=== PATIENT | male | born 1960 | race Two or more races ===

== ENCOUNTER 2021-11-15 14:00 | Outpatient (RCR) | payer OTHER, SELFPAY ==
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
== END 2021-11-15 14:45 | disposition home or self-care (01) ==
LOC: HO.PT 14:00
PROVIDERS: PCP Internal Medicine; Visit Provider Physician Assistant
DX: S46.812D Strain of other muscles, fascia and tendons at shoulder and upper arm level, left arm, subsequent encounter (principal); V89.2XXD Person injured in unspecified motor-vehicle accident, traffic, subsequent encounter
CPT/HCPCS: 97110; 97140; 97161; 97530

== ENCOUNTER 2022-03-06 06:19 | Outpatient (REF) | payer OTHER, SELFPAY ==
[2022-03-06 06:24] LABS: MANUAL DIFF FLAG NO
[2022-03-06 07:45] LABS: Cholesterol 158 mg/dL; HDL Cholesterol 42 mg/dL; LDL Cholesterol Calculated 80 mg/dl; Triglycerides 184 mg/dL
[2022-03-06 08:07] LABS: Thyroid Stimulating Hormone 4.21 uIU/mL (0.32-4.0)
[2022-03-06 08:43] LABS: Basophils Percent Auto 0.5 % (0-2); Eosinophils Absolute Auto 0.1 X10*3/uL (0.0-0.4); Eosinophils Percent Auto 1.6 % (0-4); Hematocrit 38.8 % (42.0-52.0); Hemoglobin 13.6 g/dl (14.0-18.0); Imm Gran Abs Auto 0.02 X10*3/uL (0.00-0.03); Imm Gran Pct Auto 0.5 % (0.0-0.4); Lymphocytes Absolute Auto 1.3 X10*3/uL (1.2-4.9); Mean Corpuscular HGB Conc 35.1 g/dl (31.0-36.0); Mean Corpuscular Hemoglobin 30.5 pg (27.0-33.0); Mean Platelet Volume 10.7 fL (9.4-12.4); Monocytes Absolute Auto 0.2 X10*3/uL (0.1-1.2); Monocytes Percent Auto 5.2 % (2-11); Neutrophils Absolute Auto 2.3 x10*3/uL (2.0-8.3); Neutrophils Percent Auto 59.2 % (45-73); Platelet Count 120 X10*3/uL (160-400); Red Blood Count 4.46 X10*6/uL (4.60-5.80); Red Cell Distribution Width 16.9 % (11.0-16.0); White Blood Count 3.9 X10*3/uL (4.8-10.8)
[2022-03-06 09:27] LABS: Microalbumin Urine < 5.0 mg/L
[2022-03-07 18:02] LABS: Thyroglobulin Antibodies 6 IU/mL (< or = 1)
[2022-03-08 10:17] LABS: Thyroid Peroxidase Antibodies 54 IU/mL (<9)
[2022-03-10 12:51] LABS: Vitamin D 25-OH, D2 <4 ng/mL; Vitamin D 25-OH, D3 18 ng/mL; Vitamin D 25-OH, Total 18 ng/mL (30-100)
== END 2022-03-06 06:20 | disposition home or self-care (01) ==
LOC: HO.LAB 06:19
PROVIDERS: PCP Internal Medicine; Visit Provider Internal Medicine
DX: E66.01 Morbid (severe) obesity due to excess calories (principal); Z68.35 Body mass index [BMI] 35.0-35.9, adult; E11.9 Type 2 diabetes mellitus without complications; D64.9 Anemia, unspecified; E03.9 Hypothyroidism, unspecified; E78.5 Hyperlipidemia, unspecified; E55.9 Vitamin D deficiency, unspecified
CPT/HCPCS: 36415; 80061; 82043; 82306; 84443; 85025; 86376; 86800

== ENCOUNTER 2022-09-10 06:36 | Outpatient (REF) | payer OTHER, SELFPAY ==
[2022-09-10 08:23] LABS: Alanine Aminotransferase 14 U/L (0-40); Albumin Level 3.9 g/dL (3.5-5.0); Alkaline Phosphatase 65 U/L (39-117); Anion Gap 14 (12-20); Aspartate Amino Transferase 14 U/L (5-37); Bilirubin Total 1.7 mg/dL (0.0-1.0); Blood Urea Nitrogen 11 mg/dL (9-16); Calcium 9.1 mg/dL (8.4-10.2); Carbon Dioxide 27 mmol/L (22-29); Chloride 103 mmol/L (96-108); Cholesterol 128 mg/dL; Estimated Glomerular Filt Rate > 60; Glucose Fasting 165 mg/dL (60-99); HDL Cholesterol 45 mg/dL; LDL Cholesterol Calculated 67 mg/dl; Sodium 140 mmol/L (135-145); Total Protein 6.5 g/dL (6.5-8.0); Triglycerides 83 mg/dL
[2022-09-10 08:34] LABS: Creatinine Urine 171.87 mg/dL; Microalbum/Creatinine Ratio Ur 19.2 ug/mg cr
[2022-09-10 08:45] LABS: Vitamin D 25-OH Total 11.5 ng/mL (>30)
== END 2022-09-10 06:37 | disposition home or self-care (01) ==
LOC: HO.LAB 06:36
PROVIDERS: PCP Internal Medicine; Visit Provider Internal Medicine
DX: E11.65 Type 2 diabetes mellitus with hyperglycemia (principal); E03.9 Hypothyroidism, unspecified; E78.5 Hyperlipidemia, unspecified; E55.9 Vitamin D deficiency, unspecified; Z79.4 Long term (current) use of insulin
CPT/HCPCS: 36415; 80053; 80061; 82043; 82306; 84443

== ENCOUNTER 2022-11-22 11:01 | Outpatient (REF) | payer OTHER, SELFPAY ==
[2022-11-22 12:11] LABS: Hematocrit 34.6 % (42.0-52.0); Hemoglobin 12.2 g/dl (14.0-18.0); Mean Corpuscular HGB Conc 35.3 g/dl (31.0-36.0); Mean Corpuscular Hemoglobin 30.2 pg (27.0-33.0); Mean Corpuscular Volume 85.6 fL (80.0-98.0); Mean Platelet Volume 10.9 fL (9.4-12.4); Platelet Count 107 X10*3/uL (160-400); Red Blood Count 4.04 X10*6/uL (4.60-5.80); Red Cell Distribution Width 17.2 % (11.0-16.0); White Blood Count 3.2 X10*3/uL (4.8-10.8)
[2022-11-22 12:40] LABS: Anion Gap 9 (12-20); Blood Urea Nitrogen 7 mg/dL (9-16); Carbon Dioxide 28 mmol/L (22-29); Chloride 104 mmol/L (96-108); Estimated Glomerular Filt Rate > 60; Potassium 3.9 mmol/L (3.3-5.1); Sodium 137 mmol/L (135-145)
[2022-11-22 13:16] LABS: Glucose Random 431 mg/dL (60-115)
== END 2022-11-22 11:02 | disposition home or self-care (01) ==
LOC: HO.LAB 11:01
PROVIDERS: PCP Internal Medicine; Visit Provider Physician Assistant
DX: R19.5 Other fecal abnormalities (principal)
CPT/HCPCS: 36415; 80048; 85027

== ENCOUNTER 2022-11-26 07:30 | Outpatient (REF) | payer OTHER, SELFPAY | END 2022-11-26 07:31 | disposition home or self-care (01) | LOC: HO.LNP 07:30 | PROVIDERS: Visit Provider Physician Assistant | DX: R19.5 Other fecal abnormalities (principal) | CPT/HCPCS: 87338 ==

== ENCOUNTER → 2022-12-06 11:46 | Outpatient (BNVA) | payer OTHER, SELFPAY | PROVIDERS: PCP Internal Medicine; Visit Provider Physician Assistant ==

== ENCOUNTER 2023-11-20 16:06 | Outpatient (AMB) | payer OTHER, SELFPAY ==
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
[2023-11-20 16:09] VITALS: BP 130/80; BMI 29.3
== END 2023-11-20 16:41 | disposition home or self-care (01) ==
PROVIDERS: PCP Internal Medicine; Visit Provider Internal Medicine
DX: E11.65 Type 2 diabetes mellitus with hyperglycemia (principal); Z79.4 Long term (current) use of insulin
CPT/HCPCS: 83036; 99214

== ENCOUNTER 2023-12-04 07:16 | Outpatient (REF) | payer OTHER, SELFPAY ==
[2023-12-04 07:28] LABS: MANUAL DIFF FLAG NO
[2023-12-04 08:04] LABS: Basophils Percent Auto 0.6 % (0-2); Eosinophils Absolute Auto 0.1 X10*3/uL (0.0-0.4); Eosinophils Percent Auto 1.5 % (0-4); Hematocrit 32.9 % (42.0-52.0); Hemoglobin 11.5 g/dl (14.0-18.0); Imm Gran Abs Auto 0.03 X10*3/uL (0.00-0.03); Imm Gran Pct Auto 0.9 % (0.0-0.4); Lymphocytes Absolute Auto 0.9 X10*3/uL (1.2-4.9); Lymphocytes Percent Auto 27.4 % (20-40); Mean Corpuscular Hemoglobin 30.9 pg (27.0-33.0); Mean Corpuscular Volume 88.4 fL (80.0-98.0); Monocytes Absolute Auto 0.3 X10*3/uL (0.1-1.2); Monocytes Percent Auto 7.4 % (2-11); Neutrophils Absolute Auto 2.1 x10*3/uL (2.0-8.3); Neutrophils Percent Auto 62.2 % (45-73); Platelet Count 114 X10*3/uL (160-400); Red Blood Count 3.72 X10*6/uL (4.60-5.80); Red Cell Distribution Width 15.9 % (11.0-16.0); White Blood Count 3.4 X10*3/uL (4.8-10.8)
[2023-12-04 08:45] LABS: Alanine Aminotransferase 14 U/L (0-40); Albumin Level 3.8 g/dL (3.5-5.0); Alkaline Phosphatase 62 U/L (39-117); Anion Gap 12 (12-20); Aspartate Amino Transferase 16 U/L (5-37); Bilirubin Total 1.2 mg/dL (0.0-1.0); Blood Urea Nitrogen 10 mg/dL (9-16); Calcium 9.4 mg/dL (8.4-10.2); Carbon Dioxide 27 mmol/L (22-29); Chloride 102 mmol/L (96-108); Cholesterol 124 mg/dL (<200); Estimated Glomerular Filt Rate > 60; Glucose Fasting 313 mg/dL (60-99); HDL Cholesterol 50 mg/dL (>40); LDL Cholesterol Calculated 61 mg/dL (<100); Potassium 4.1 mmol/L (3.3-5.1); Sodium 137 mmol/L (135-145); Total Protein 6.6 g/dL (6.5-8.0); Triglycerides 69 mg/dL (<150)
[2023-12-04 08:51] LABS: Creatinine Urine 82.41 mg/dL; Microalbum/Creatinine Ratio Ur 135.9 ug/mg cr (<30)
[2023-12-04 08:51] LABS: Vitamin D 25-OH Total 12.6 ng/mL (>30)
[2023-12-07 11:38] LABS: NT-proBNP 215 pg/mL (<125)
== END 2023-12-04 07:17 | disposition home or self-care (01) ==
LOC: HO.LAB 07:16
PROVIDERS: PCP Internal Medicine; Visit Provider Internal Medicine
DX: E11.65 Type 2 diabetes mellitus with hyperglycemia (principal); E78.5 Hyperlipidemia, unspecified; E03.9 Hypothyroidism, unspecified; R60.0 Localized edema; E55.9 Vitamin D deficiency, unspecified; Z79.4 Long term (current) use of insulin
CPT/HCPCS: 36415; 80053; 80061; 82043; 82306; 82570; 83880; 84443; 85025

== ENCOUNTER → 2023-12-11 12:35 | Outpatient (REF) | payer OTHER, SELFPAY ==
--- NOTE | 2023-12-11 12:38 | CA_ITS ---
Transthoracic Echocardiogram Patient (Last, First, Middle): Jeet Flores R Gender: Male Date of : 1960 Age: 63 Procedure Date: 12/11/2023 Procedure Type: Transthoracic Echocardiogram Location: OP Height: 165.1 cm Weight: 78.02 kg BSA: 1.86 m2 Heart Rate: bpm BP: 132 / 80 mmHg Apartment Property Manager: Referring MD: Lesvia Driver MD Account Liaison Hospice: Jeevan Palm MD Symptoms: R01.1 - Cardiac murmur, unspecified Study Quality: Good ECG Rhythm: Sinus Conclusions: - 1. Moderately reduced LV ejection fraction of 35-40% with mild LVH with impaired relaxation filling pattern 2. Trace aortic regurgitation 3. Normal RV systolic pressure 4. Mildly dilated ascending aorta 3.7 cm 5. No pericardial effusion Findings Left Ventricle Normal left ventricular cavity size. There is mildly increased left ventricular wall thickness. The left ventricular systolic function is moderately decreased. The visually estimated ejection fraction is between 35 40%. There is moderate global hypokinesis. Spectral Doppler is indicative of an impaired relaxation filling pattern. E/E prime ratio is between 8 and 15 consistent with indeterminate filling pressures. Right Ventricle Normal right ventricular cavity size and systolic function. Atria The left atrium is likely dilated. There is lipomatous hypertrophy of the interatrial septum. There is no evidence of interatrial shunt. The right atrium is normal in size. Aortic Valve There is mild calcification of the aortic valve. There is no aortic valve stenosis. There is trace (trivial) aortic valve regurgitation. Mitral Valve Normal mitral valve structure and function. There is trace mitral valve regurgitation. There is no mitral valve stenosis. Pulmonic Valve The pulmonic valve was not well visualized. Tricuspid Valve Likely normal tricuspid valve structure and function. There is trace tricuspid valve regurgitation. The right ventricular systolic pressure is normal. The right ventricular systolic pressure is 22 mmHg. Normal right atrial pressure. There is no evidence of pulmonary hypertension. Great Vessels The pulmonary artery was not well visualized. There is mild dilatation of the ascending aorta measuring 3.70 cm. Venous The inferior vena cava is normal in size and collapses greater than 50% with inspiration. Pericardium/Pleural There is no evidence of pericardial effusion. Prior Study Comparison Significant changes compared to prior study. Compared to prior echo from 2009, LV EF is reduced Measurements 2D Linear Measurements IVSd: 1.33 0.6-0.9/0.6-1.0 cm LVIDd: 4.50 3.9-5.3/4.2-5.9 cm LVIDd Index: 2.42 2.4-3.2/2.2-3.1 cm/m2 LVIDs: 3.32 2.0-3.6 cm LVPWd: 1.31 0.7-1.1 cm Ao Root: 3.60 2.1-3.5 cm LA Diam: 3.10 2.7-3.8/3.0-4.0 cm LAIDs Index: 1.67 1.5-2.3 cm/m2 LV Mass: 283.78 67-162/88-224 g LV Mass Index: 152.57 43-95/49-115 g/m2 LVOT Diam: 2.40 3.0+(-)1.3 cm 2D Systolic Function EF 4C: 34.70 >55% EF 2C: 41.50 >55% EF BiP: 35.90 >55% Mitral Valve MV Pk E: 0.45 MV PK A: 0.83 MV Decel Time: 98.00 E/A: 0.50 E'Lateral: 4.68 E'Medial: 2.72 E/E' Med: 16.50 E/E' Lat: 9.60 PHT: 29.00 MVA PHT: 7.59 Decel [place]: 4.57 Aortic Valve AoV Pk Toro: 1.68 AoV Mn Toro: 1.23 AoV VTI: 0.33 AoV Pk Grad: 11.00 Aov Mn Grad: 7.00 NICK Cont.VTI: 2.69 LVOT LVOT Pk Toro: 0.80 LVOT Mn Toro: 0.49 LVOT VTI: 0.20 LVOT Pk Grad: 3.00 LVOT Mn Grad: 1.00 LVOT Diam: 2.40 LVOT Area: 4.52 Diastolic Function MV Pk E: 0.45 MV Pk A: 0.83 E/A: 0.50 E'Medial: 2.72 E/E' Med: 16.50 E' Laterial: 4.68 E/E' Lat: 9.60 Right Ventricle TAPSE (mm): 24.00 TVS' Toro: 14.00 Tricuspid Valve TR Pk Toro: 2.19 TR Pk Grad: 19.00 RA Press: 3.00 RVSP: 22.00 Great Vessels Aorta Ao Root-2D: 3.60 2.0-3.7 cm Ao Asc: 3.70 2.1-3.4 cm Pulmonary Valve PV Pk Toro: 0.86 Peak PV Grad: 3.00 Updated in Other Vendor System with Status of Final Jeevan Palm MD electronically signed on 12/11/2023 1:46:30 PM with status of Final
== END ==
LOC: HO.CARD 12:35
PROVIDERS: PCP Internal Medicine; Visit Provider Internal Medicine
DX: R01.1 Cardiac murmur, unspecified (principal)
CPT/HCPCS: 93306

== ENCOUNTER → 2023-12-11 12:38 | Outpatient (BNV) | payer OTHER, SELFPAY | PROVIDERS: PCP Internal Medicine; Visit Provider Internal Medicine Cardiovascular Disease | DX: I35.8 Other nonrheumatic aortic valve disorders (principal); R93.1 Abnormal findings on diagnostic imaging of heart and coronary circulation | CPT/HCPCS: 93306 ==

== ENCOUNTER 2023-12-19 08:42 | Outpatient (AMB) | payer OTHER, SELFPAY ==
[2023-12-19 08:44] VITALS: BP 132/80; PULSE 97; O2SAT 99; BMI 30.9
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
== END 2023-12-19 09:17 | disposition home or self-care (01) ==
LOC: HO.HMGH 08:42
PROVIDERS: PCP Internal Medicine; Visit Provider Internal Medicine
DX: Z00.00 Encounter for general adult medical examination without abnormal findings (principal); E11.65 Type 2 diabetes mellitus with hyperglycemia; Z79.4 Long term (current) use of insulin; D61.818 Other pancytopenia; I50.22 Chronic systolic (congestive) heart failure
CPT/HCPCS: 99396

== ENCOUNTER → 2023-12-20 13:07 | Outpatient (BNV) | payer OTHER, SELFPAY | PROVIDERS: PCP Internal Medicine; Referring Provider Internal Medicine; Visit Provider Internal Medicine | DX: D61.818 Other pancytopenia (principal) | CPT/HCPCS: 99204 ==

== ENCOUNTER 2024-01-07 14:43 | Outpatient (AMB) | payer OTHER, SELFPAY ==
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
[2024-01-07 15:40] VITALS: BP 134/80; PULSE 93; O2SAT 99; BMI 32.3
== END 2024-01-07 15:58 | disposition home or self-care (01) ==
PROVIDERS: PCP Internal Medicine; Referring Provider Internal Medicine; Visit Provider Internal Medicine Nephrology
DX: R80.9 Proteinuria, unspecified (principal)
CPT/HCPCS: 99204

== ENCOUNTER → 2024-01-07 14:43 | Outpatient (BNVA) | payer OTHER, SELFPAY | PROVIDERS: PCP Internal Medicine; Referring Provider Internal Medicine; Visit Provider Internal Medicine Nephrology ==

== ENCOUNTER 2024-01-24 08:42 | Outpatient (REF) | payer OTHER, SELFPAY ==
--- NOTE | ~2024-01-24 | US_ITS ---
EXAMINATION: US RETROPERITONEAL LIMITED (RENAL ONLY) CLINICAL INFORMATION: Proteinuria. COMPARISON: None available. TECHNIQUE: Real-time imaging of the kidneys. FINDINGS: RIGHT KIDNEY: 12.8 x 6.0 x 5.7 cm (SAG x AP x TRV). The kidney is normal in size, contour, and echogenicity. Renal cortical thickness is normal. No calculi or focal parenchymal lesions. No hydronephrosis. LEFT KIDNEY: 13.3 x 4.8 x 4.5 cm (SAG x AP x TRV). The kidney is normal in size, contour, and echogenicity. Renal cortical thickness is normal. No calculi or focal parenchymal lesions. There is mild pelviectasis, without xander hydronephrosis. At the upper pole, a 5 mm benign, simple cyst is seen. At the interpolar aspect, a 7 mm benign, simple cyst is seen. These require no imaging follow-up. OTHER: There is mild splenomegaly, with a longitudinal span of 16.2 cm. US/US renal BI IMPRESSION: 1. Unremarkable ultrasound appearance of the kidneys. 2. There is mild splenomegaly.
== END 2024-01-24 08:43 | disposition home or self-care (01) ==
LOC: HO.US 08:42
PROVIDERS: PCP Internal Medicine; Visit Provider Internal Medicine Nephrology
DX: R80.9 Proteinuria, unspecified (principal)
CPT/HCPCS: 76775

== ENCOUNTER 2024-02-03 12:04 | Outpatient (AMB) | payer OTHER, SELFPAY ==
[2024-02-03 12:31] VITALS: BP 112/86; PULSE 99; O2SAT 99; BMI 30.1
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
== END 2024-02-03 12:59 | disposition home or self-care (01) ==
PROVIDERS: PCP Internal Medicine; Visit Provider Internal Medicine
DX: E11.65 Type 2 diabetes mellitus with hyperglycemia (principal); I50.22 Chronic systolic (congestive) heart failure; Z79.4 Long term (current) use of insulin; D61.818 Other pancytopenia; Z09 Encounter for follow-up examination after completed treatment for conditions other than malignant neoplasm; E03.9 Hypothyroidism, unspecified
CPT/HCPCS: 99495

== ENCOUNTER 2024-02-03 13:07 | Outpatient (REF) | payer OTHER, SELFPAY ==
[2024-02-03 15:29] LABS: Thyroid Stimulating Hormone 0.69 uIU/mL (0.32-4.0)
== END 2024-02-03 13:08 | disposition home or self-care (01) ==
LOC: HO.LAB 13:07
PROVIDERS: PCP Internal Medicine; Visit Provider Internal Medicine
DX: E03.9 Hypothyroidism, unspecified (principal)
CPT/HCPCS: 36415; 84443

== ENCOUNTER 2024-02-14 07:12 | Outpatient (REF) | payer OTHER, SELFPAY ==
[2024-02-14 07:51] LABS: Basophils Percent Auto 0.3 % (0-2); Eosinophils Absolute Auto 0.1 X10*3/uL (0.0-0.4); Eosinophils Percent Auto 2.1 % (0-4); Hematocrit 29.8 % (42.0-52.0); Hemoglobin 10.6 g/dl (14.0-18.0); Imm Gran Abs Auto 0.02 X10*3/uL (0.00-0.03); Imm Gran Pct Auto 0.6 % (0.0-0.4); Lymphocytes Absolute Auto 0.8 X10*3/uL (1.2-4.9); Lymphocytes Percent Auto 24.8 % (20-40); MANUAL DIFF FLAG NO; Mean Corpuscular HGB Conc 35.6 g/dl (31.0-36.0); Mean Corpuscular Hemoglobin 30.8 pg (27.0-33.0); Mean Corpuscular Volume 86.6 fL (80.0-98.0); Mean Platelet Volume 10.3 fL (9.4-12.4); Monocytes Absolute Auto 0.2 X10*3/uL (0.1-1.2); Neutrophils Absolute Auto 2.2 x10*3/uL (2.0-8.3); Neutrophils Percent Auto 66.2 % (45-73); Platelet Count 106 X10*3/uL (160-400); Red Blood Count 3.44 X10*6/uL (4.60-5.80); Red Cell Distribution Width 15.9 % (11.0-16.0); White Blood Count 3.4 X10*3/uL (4.8-10.8)
[2024-02-14 07:59] LABS: Appearance Urine Clear; Color Urine Yellow; Glucose Urine UA Negative (Negative); Leukocyte Esterase Urine Trace (Negative); Nitrite Urine Negative (Negative); PH 5.5 (5.0-9.0); UMIC TRIGGER UA YES; Urine Blood Negative (Negative); Urine Ketones Negative (Negative); Urine Protein Negative (Neg-Trace)
[2024-02-14 08:05] LABS: Bacteria Urine None Seen (None Seen); RBC Urine 0-2 /HPF (0-2); Squamous Epithelial Cell Urine 0-2 /HPF (0-2); WBC Urine 0-5 /HPF (0-5)
[2024-02-14 22:43] LABS: Anion Gap 13 (12-20); Blood Urea Nitrogen 17 mg/dL (9-16); Carbon Dioxide 30 mmol/L (22-29); Chloride 103 mmol/L (96-108); Estimated Glomerular Filt Rate > 60; Potassium 3.5 mmol/L (3.3-5.1); Sodium 142 mmol/L (135-145)
[2024-02-15 03:57] LABS: HBc Num1 0.13 S/CO (0.00-0.79); HBsAGNum1 0.46 S/CO (0.00-0.99); Hepatitis B Core Antibody Nonreactive (Nonreactive); Hepatitis B Surface Antigen Negative (Negative)
[2024-02-17 10:23] LABS: Complement C3 27 mg/dL (82-185)
[2024-02-17 21:13] LABS: Anti DNA DS Antibody <1 IU/mL; Anti Glomerular Basement Memb <1.0 AI; Myeloperoxidase Antibody <1.0 AI; Proteinase 3 PR3 Antibodies <1.0 AI
[2024-02-18 14:24] LABS: Neutrophil Cyto Ab Screen NEGATIVE (NEGATIVE)
[2024-02-19 13:07] LABS: IgA 329 mg/dL (70-320); IgG 1100 mg/dL (600-1540); IgM 37 mg/dL (50-300)
[2024-02-19 23:54] LABS: Phospholipase A2 IgG ELISA <4 RU/mL; Phospholipase A2 IgG IFA NEGATIVE (NEGATIVE)
== END 2024-02-14 07:13 | disposition home or self-care (01) ==
LOC: HO.LAB 07:12
PROVIDERS: PCP Internal Medicine; Visit Provider Internal Medicine Nephrology
DX: R80.9 Proteinuria, unspecified (principal)
CPT/HCPCS: 36415; 80051; 81001; 82310; 82565; 82784; 83520; 84520; 85025; 86021; 86036; 86160; 86225; 86255; 86334; 86704; 87340

== ENCOUNTER 2024-02-18 14:13 | Outpatient (AMB) | payer OTHER, SELFPAY ==
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
[2024-02-18 14:45] VITALS: BP 80/52; PULSE 102; O2SAT 99; BMI 30.4
== END 2024-02-18 15:18 | disposition home or self-care (01) ==
PROVIDERS: PCP Internal Medicine; Visit Provider Internal Medicine Nephrology
DX: R80.9 Proteinuria, unspecified (principal)
CPT/HCPCS: 99214

== ENCOUNTER → 2024-02-18 14:13 | Outpatient (BNVA) | payer OTHER, SELFPAY | PROVIDERS: PCP Internal Medicine; Visit Provider Internal Medicine Nephrology ==

== ENCOUNTER 2024-05-05 09:54 | Outpatient (REF) | payer OTHER, SELFPAY ==
[2024-05-05 10:53] LABS: Appearance Urine Clear; Color Urine Yellow; Glucose Urine UA Negative (Negative); Leukocyte Esterase Urine Moderate (2+) (Negative); Nitrite Urine Negative (Negative); PH 6.5 (5.0-9.0); Specific Gravity - Urine 1.015 (1.005-1.025); UMIC TRIGGER UA YES; Urine Blood Negative (Negative); Urine Ketones Negative (Negative); Urine Protein Negative (Neg-Trace)
[2024-05-05 11:09] LABS: Bacteria Urine None Seen (None Seen); Hyaline Casts Urine 0-2 /LPF (0-2); RBC Urine 0-2 /HPF (0-2); Squamous Epithelial Cell Urine 0-2 /HPF (0-2); WBC Urine 0-5 /HPF (0-5)
== END 2024-05-05 09:55 | disposition home or self-care (01) ==
LOC: HO.LAB 09:54
PROVIDERS: PCP Internal Medicine; Visit Provider Internal Medicine Nephrology
DX: R80.9 Proteinuria, unspecified (principal)
CPT/HCPCS: 81001

== ENCOUNTER 2024-07-30 15:24 | Outpatient (AMB) | payer OTHER, SELFPAY ==
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
[2024-07-30 15:47] VITALS: BP 120/70; BMI 33.6
== END 2024-07-30 15:57 | disposition home or self-care (01) ==
PROVIDERS: PCP Internal Medicine; Visit Provider Internal Medicine Nephrology
DX: R80.9 Proteinuria, unspecified (principal)
CPT/HCPCS: 99214

== ENCOUNTER → 2024-07-30 15:24 | Outpatient (BNVA) | payer OTHER, SELFPAY | PROVIDERS: PCP Internal Medicine; Visit Provider Internal Medicine Nephrology ==

== ENCOUNTER 2025-01-11 13:45 | Outpatient (AMB) | payer OTHER, SELFPAY ==
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
[2025-01-11 13:49] VITALS: BP 102/68; BMI 33.3
--- OUTSIDE RECORDS SUMMARY | 2025-01-11 15:24 | XMS_ITS | Clinical Summary ---
Author Organization [facility] Address [address] [place] [address] Care Team Providers Care Hospital Account Manager Name Role Phone Unavailable Primary Care Provider Unavailabl e Source Comments PLEASE NOTE, if this patient is a minor, it may be UNLAWFUL to discuss sensitive information that is contained in these records (such as FAMILY PLANNING, MENTAL HEALTH or SUBSTANCE ABUSE) with the minor patient's parent or other person without the patient's specific authorization.[facility] Immunizations Immunization Administration Dates Next Due PFIZER COVID VACCINE, PURPLE CAP, 12+ 04/19/2021 ,03/29/2021 Social History Tobacco Use Types Packs/Day Years Used Date Smoking Tobacco: Never Assessed Social Connections Answer Date Recorded Connectedness 0 04/09/2024 Financial Resource Strain Answer Date R ecorded Financial Resource Strain 0 2020 Stress Answer Date Recorded Stress 0 03/29/2021 Physical Activity Answer Date Recorded Physical Activity 0 03/29/2021 Food Insecurity Answer Date Recorded Food 0 04/23/2024 Transportation Needs Answer Date Record ed Transportation 0 03/29/2021 Housing Stability Answer Date Recorded Housing 0 03/29/2021 Safety and Environment Answer Date [place] rded Safety 0 03/29/2021 Utilities Answer Date Recorded Utilities 0 03/29/2021 Employment Answer Date Recorded Stress 0 04/09/2024 Sex and Gender Information Value Date Recorded Sex Assigned at Not on file Legal Sex Male 5:44 AM PDT Gender Identity Not on file Sexual Orientation Not on file Plan of Treatment Health Maintenance Due Date Last Done Comments Anxiety Screening 1960 Diabetes Screening 1962 Hepatitis C Screening 1962 Lipid Screening 1962 Tobacco Screening 1962 HIV Screening 1977 Hypertension Screening (#1) 1980 CT Colonography 10/06/2007 Colonoscopy 10/06/2007 Colorectal Cancer Screening 10/06/2007 FIT/gFOBT 10/06/2007 Fecal DNA 10/06/2007 Flexible Sigmoidoscopy 10/06/2007 Imm-Zoster, Recombinant (1 of 2) 2012 Imm-DTaP/Tdap/Td (3 - Td or Tdap) 07/08/2023 013, 08/23/2010 [id number] (4 - season) 2024 02/13/2022, 04/19/2021, 03/29/2021 Alcohol and Drug Screen 07/29/2024 Depression Annual Screen 07/29/2024 Imm-Influenza (Season Ended) 2025, 05/18/2011, 08/23/2010, Additional history exists Insurance [employer]
== END 2025-01-11 14:19 | disposition home or self-care (01) ==
LOC: HO.HMCH 13:46
PROVIDERS: PCP Internal Medicine; Visit Provider Internal Medicine
DX: I50.22 Chronic systolic (congestive) heart failure (principal); E11.65 Type 2 diabetes mellitus with hyperglycemia; Z79.4 Long term (current) use of insulin; E78.5 Hyperlipidemia, unspecified; E03.9 Hypothyroidism, unspecified; G43.909 Migraine, unspecified, not intractable, without status migrainosus

== ENCOUNTER → 2025-01-11 13:45 | Outpatient (BNVA) | payer OTHER, SELFPAY | PROVIDERS: PCP Internal Medicine; Visit Provider Internal Medicine | DX: I50.22 Chronic systolic (congestive) heart failure (principal); E11.65 Type 2 diabetes mellitus with hyperglycemia; E78.5 Hyperlipidemia, unspecified; E03.9 Hypothyroidism, unspecified; G43.909 Migraine, unspecified, not intractable, without status migrainosus; D64.9 Anemia, unspecified; R80.9 Proteinuria, unspecified; E55.9 Vitamin D deficiency, unspecified; Z79.4 Long term (current) use of insulin; Z79.84 Long term (current) use of oral hypoglycemic drugs | CPT/HCPCS: 83036; 96127 ==

== ENCOUNTER 2025-01-15 07:53 | Outpatient (REF) | payer OTHER, SELFPAY ==
--- OUTSIDE RECORDS SUMMARY | 2025-01-15 07:56 | XMS_ITS | Clinical Summary ---
Author Organization [facility] Address [address] [place] [address] Care Team Providers Care Water Project Engineer Name Role Phone Unavailable Primary Care Provider [...] - Td or Tdap) 07/08/2023 013, 08/23/2010 [id number] (4 - season) 2024 02/13/2022, 04/19/2021, 03/29/2021 Alcohol and Drug Screen 07/29/2024 Depression Annual Screen 07/29/2024 Imm-Influenza (Season Ended) 2025, 05/18/2011, 08/23/2010, Additional history exists Insurance [employer]
[2025-01-15 08:08] LABS: MANUAL DIFF FLAG NO
[2025-01-15 08:11] LABS: Basophils Percent Auto 0.3 % (0-2); Eosinophils Absolute Auto 0.1 X10*3/uL (0.0-0.4); Eosinophils Percent Auto 3.2 % (0-4); Hemoglobin 9.1 g/dl (14.0-18.0); Imm Gran Abs Auto 0.01 X10*3/uL (0.00-0.03); Imm Gran Pct Auto 0.3 % (0.0-0.4); Lymphocytes Absolute Auto 0.8 X10*3/uL (1.2-4.9); Lymphocytes Percent Auto 23.5 % (20-40); Mean Corpuscular HGB Conc 36.4 g/dl (31.0-36.0); Mean Corpuscular Hemoglobin 31.2 pg (27.0-33.0); Mean Corpuscular Volume 85.6 fL (80.0-98.0); Mean Platelet Volume 9.8 fL (9.4-12.4); Monocytes Absolute Auto 0.2 X10*3/uL (0.1-1.2); Monocytes Percent Auto 5.8 % (2-11); Neutrophils Absolute Auto 2.3 x10*3/uL (2.0-8.3); Neutrophils Percent Auto 66.9 % (45-73); Red Blood Count 2.92 X10*6/uL (4.60-5.80); Red Cell Distribution Width 15.3 % (11.0-16.0); White Blood Count 3.4 X10*3/uL (4.8-10.8)
[2025-01-15 08:14] LABS: Platelet Count 96 X10*3/uL (160-400)
[2025-01-15 08:35] LABS: Alanine Aminotransferase 18 U/L (0-40); Albumin Level 4.1 g/dL (3.5-5.0); Alkaline Phosphatase 55 U/L (39-117); Anion Gap 11 (12-20); Aspartate Amino Transferase 22 U/L (5-37); Bilirubin Total 0.7 mg/dL (0.0-1.0); Blood Urea Nitrogen 22 mg/dL (9-16); Calcium 8.8 mg/dL (8.4-10.2); Carbon Dioxide 24 mmol/L (22-29); Chloride 108 mmol/L (96-108); Cholesterol 123 mg/dL (<200); Estimated Glomerular Filt Rate > 60; Glucose Fasting 195 mg/dL (60-99); HDL Cholesterol 37 mg/dL (>40); Iron 87 mcg/dL (45-160); LDL Cholesterol Calculated 65 mg/dL (<100); Percent Iron Saturation 36 % (15-50); Sodium 139 mmol/L (135-145); Total Iron Binding Capacity 245 mcg/dL (228-428); Total Protein 6.5 g/dL (6.5-8.0); Triglycerides 108 mg/dL (<150); Unsaturated Iron Binding 158 ug/dL
[2025-01-15 08:49] LABS: Thyroid Stimulating Hormone 0.15 uIU/mL (0.32-4.0); Vitamin D 25-OH Total 26.5 ng/mL (>30)
[2025-01-15 08:55] LABS: Appearance Urine Clear; Color Urine Yellow; Glucose Urine UA Negative (Negative); Leukocyte Esterase Urine Trace (Negative); Nitrite Urine Negative (Negative); PH 5.5 (5.0-9.0); UMIC TRIGGER UA YES; Urine Blood Negative (Negative); Urine Ketones Negative (Negative); Urine Protein Negative (Neg-Trace)
[2025-01-15 09:01] LABS: Bacteria Urine None Seen (None Seen); RBC Urine 0-2 /HPF (0-2); Squamous Epithelial Cell Urine 0-2 /HPF (0-2); WBC Urine 0-5 /HPF (0-5)
[2025-01-15 09:02] LABS: Folate 7.3 ng/mL (> or = 4.0); Vitamin B12 279 pg/mL (200-900)
[2025-01-15 10:29] LABS: Creatinine Urine 80.55 mg/dL; Creatinine Urine 81.42 mg/dL; Microalbum/Creatinine Ratio Ur 13.6 ug/mg cr (<30); Total Protein Urine Random < 7 mg/dL (<12)
[2025-01-18 15:18] LABS: NT-proBNP 99 pg/mL (<125)
== END 2025-01-15 07:54 | disposition home or self-care (01) ==
LOC: HO.LAB 07:53
PROVIDERS: Internal Medicine Nephrology; PCP Internal Medicine; Visit Provider Internal Medicine
DX: R80.9 Proteinuria, unspecified (principal); E78.5 Hyperlipidemia, unspecified; D64.9 Anemia, unspecified; E11.65 Type 2 diabetes mellitus with hyperglycemia; Z79.4 Long term (current) use of insulin; E53.8 Deficiency of other specified B group vitamins; I50.22 Chronic systolic (congestive) heart failure; E55.9 Vitamin D deficiency, unspecified; E03.9 Hypothyroidism, unspecified
CPT/HCPCS: 36415; 80053; 80061; 81001; 82043; 82306; 82570; 82607; 82746; 83540; 83880; 84156; 84443; 85025

== ENCOUNTER 2025-02-05 07:25 | Outpatient (REF) | payer OTHER, SELFPAY ==
[2025-02-05 08:29] LABS: Appearance Urine Clear; Glucose Urine UA 100 mg/dL (Negative); PH 5.5 (5.0-9.0); Specific Gravity - Urine <= 1.005 (1.005-1.025)
[2025-02-05 08:36] LABS: Anion Gap 10 (12-20); Blood Urea Nitrogen 11 mg/dL (9-16); Carbon Dioxide 26 mmol/L (22-29); Chloride 107 mmol/L (96-108); Estimated Glomerular Filt Rate > 60; Potassium 4.1 mmol/L (3.3-5.1); Sodium 139 mmol/L (135-145)
== END 2025-02-05 07:26 | disposition home or self-care (01) ==
LOC: HO.LAB 07:25
PROVIDERS: PCP Internal Medicine; Visit Provider Internal Medicine Nephrology
DX: R80.9 Proteinuria, unspecified (principal)
CPT/HCPCS: 36415; 80051; 81003; 82565; 84520

== ENCOUNTER 2025-02-09 13:27 | Outpatient (AMB) | payer OTHER, SELFPAY ==
--- OUTSIDE RECORDS SUMMARY | 2025-02-08 11:30 | XMS_ITS | Encounter Summary ---
Author Organization [facility] Address [address] [place] [address] Care Team Providers Care Contract Graphic Designer Name Role Phone Lesvia Driver MD Primary Care Provider [phone] Reason for Visit * Reason Comments Follow-up Encounter Details Date Type Department Care Team (Late st Contact Info) Description 02/08/2025 11:30 AM EDT Office Visit [facility] [address] [place] [id number] Katlin Castellanos NP [address] [place] [address] [place] [address] HFrEF (heart failure with reduced ejection fraction) (CMS/HCC V24, CMS/HCC V28) (Primary Dx) Social History Tobacco Use Types Packs/Day Years Used Date Smoking Tobacco: Never Smokeless Tobacco: Never Alcohol Use Standard Drinks/Week Comments Never 0 (1 standard drink = 0.6 oz pur e alcohol) Sex and Gender Information Value Date Recorded Sex Assigned at Male 07/10/2024 5:37 AM EST Legal Sex Male 10:47 PM EST Gender Identity Male 07/10/2024 5:37 AM EST Sexual Orientation Straight 07/10/2024 5: 37 AM EST documented as of this encounter Last Filed Vital Signs Vital Sign Reading Time Taken Comments Blood Pressure 128/72 02/08/2025 11:21 AM EDT Pulse 97 02/08/2025 11:21 AM EDT Temperature - - Respiratory Rate - - Oxygen Saturation 99% 02/08/2025 11:21 AM EDT Inhaled Oxygen Concentration - - Weight 94.8 kg (209 lb) 02/08/2025 11:21 AM EDT Height 165.1 cm (5' 5 ) 02/08/2025 11:21 AM EDT Body Mass Index 34.78 02/08/2025 11:21 AM EDT documented in this encounter Progress Notes * Katlin Castellanos NP - 02/08/2025 11:30 AM EDTAssociated Problem(s): HFrEF (heart failure with reduced ejection fraction) (CMS/HCC V24, CMS/HCC V28) Patient is history of HFrEF-EF 35 to 40%. He had a coronary angiogram which did not reveal any obstructive coronary artery disease. This is a nonischemic cardiomyopathy of unknown etiology. Patient does not have any contributing history that could explain his cardiomyopathy. Cardiac MRI did not show any specific etiology. LVEF did improve to 46% on recent MRI. He is tolerating Entresto, carvedilol and spironolactone. Labs are stable. I would also like the patient to start Farxiga 10 mg once a day. Patient is on insulin which is managed by his primary care provider. Daughter will reach out to the PCP again to discuss adding Farxiga. I recommend that they discuss this further with his primarycare provider as adjustments to his insulin dosing may be necessary. Patient advised to seek emergency medical attention by calling 911 if they were to develop severe dyspnea, chest pain that did not resolve with rest or nitroglycerin, or if they were to faint. I've asked the patient to call if they develop worsening symptoms of heart failure such as increased shortness of breath, new or worsening cough, increased swelling in the legs or ankles, or weight gain of more than 2 pounds in one day or 4 pounds in one week. * Katlin Castellanos NP - 02/08/2025 11:30 AM EDT Images from the original note were not included. [facility] PRIMARY MECHANICAL ENERGY ENGINEER: Keegan Enriquez MD PCP: Lesvia Driver MD HPI: Jeet Flores is a 64 y.o. old male with history of HFrEF-EF 35 to 40%, diabetes on insulin, asthma, hypothyroidism. Patient presented to [facility] with chest pain and shortness of breath. Echocardiogram showed an LVEF of 35 to 40% in the past and etiology of the cardiomyopathy was unclear. Coronary angiogram completed 01/29/2024. Coronary angiogram revealed normal coronary arteries with no obstructive coronary artery disease. Patient was started on medical therapy for HFrEF. Family history reviewed: Patient's mother at the age of 27 from a heart issue. She had had 4 children in the span of 10 years prior to her passing. Etiology of her heart problem is not known. Patient's father had some sort of cardiac condition that required a pacemaker. He passed at the age of62 from cancer. No family history of sudden cardiac . Cardiac MRI completed 10/2024. This showed normal left ventricular chamber size with mild global hypokinesis and an LVEF of 46%. There was intramural delayed enhancement signal in the basal inferior wall extending to the basal inferior septum suggestive of mild nonischemic cardiomyopathy of nonspecific etiology including the possibility of sarcoid, myocarditis or fibrosis. Presents today for cardiac follow-up accompanied by his daughter. He is feeling well and denies anychest pain, palpitations, dyspnea, orthopnea, PND, syncope, near syncope or increased peripheral edema. His labs are stable. He is tolerating Entresto, spironolactone and carvedilol. He did follow-upwith his primary care provider but unfortunately Farxiga was not addressed. He is on insulin. Doesnot check his blood sugars at home. ACTIVE MEDICATIONS: Current Outpatient Medications Medication Instructions amitriptyline (ELAVIL) 25 mg, Nightly aspirin 81 mg EC tablet 1 tablet, Daily blood glucose control high,low (FreeStyle Control) solution 1 Each by In Vitro route Once. blood sugar diagnostic (FreeStyle Lite Strips) test strip Apply 1 Strip topically 4 times daily. blood-glucose meter kit 1 Each by Does not apply route as needed for Other. carvediloL (COREG) 6.25 mg tablet TOME 1 TABLETA POR VIA ORAL DOS VECES AL PILAR CON LAS COMIDAS cholecalciferol (VITAMIN D-3) 2,000 Units, Daily Entresto 24-26 mg per tablet TOME 1 TABLETA POR VIA ORAL DOS VECES AL PILAR FREESTYLE LANCETS MISC 1 Each by Does not apply route 4 times daily. Lantus Solostar U-100 Insulin 25 Units, Nightly levothyroxine (SYNTHROID, LEVOTHROID) 150 mcg, Every morning before breakfast spironolactone (ALDACTONE) 25 mg, oral, Daily torsemide (DEMADEX) 20 mg tablet Sig - Route: Take 1 Tablet by mouth daily for 360 days. PAST MEDICAL HISTORY: Patient Active Problem List Diagnosis Asthma Hypothyroidism Type 2 diabetes mellitus ([facility] V24, [facility] V28) HFrEF (heart failure with reduced ejection fraction) ([facility] V24, [facility] V28) ALLERGIES: No Known Allergies SOCIAL HISTORY: Social History Tobacco Use Smoking status: Never Smokeless tobacco: Never Substance Use Topics Alcohol use: Never PHYSICAL EXAM: Vitals: 02/08/25 1121 BP: 128/72 BP Location: Left arm Patient Position: Sitting BP Cuff Size: Adult Pulse: 97 SpO2: 99% Weight: 94.8 kg (209 lb) Height: 1.651 m (65 ) Physical Exam Constitutional: General: He is not in acute distress. Appearance: He is not diaphoretic. HENT: Head: Normocephalic. Eyes: Pupils: Pupils are equal, round, and reactive to light. Neck: Vascular: No carotid bruit. Cardiovascular: Rate and Rhythm: Normal rate and regular rhythm. Pulses: Normal pulses. Heart sounds: Murmur heard. Holosystolic murmur is present with a grade of 2/6. No friction rub. Pulmonary: Effort: Pulmonary effort is normal. No respiratory distress. Breath sounds: Normal breath sounds. No stridor. No wheezing, rhonchi or rales. Chest: Chest wall: No tenderness. Abdominal: General: Bowel sounds are normal. There is no distension. Palpations: Abdomen is soft. Tenderness: There is no abdominal tenderness. Musculoskeletal: General: No deformity. Cervical back: Normal range of motion. Right lower leg: Edema present. Left lower leg: Edema present. Skin: General: Skin is warm and dry. Neurological: Mental Status: He is alert and oriented to person, place, and time. Psychiatric: Mood and Affect: Mood normal. EKG: Encounter Date: 02/08/25 ECG 12 lead Result Value Ventricular Rate ECG 86 Atrial Rate 86 P-R Interval 186 QRS Duration 90 Q-T Interval 334 QTc 399 P Wave [place] 50 R [place] 13 T [place] 53 ECG Interpretation Normal sinus rhythm Normal ECG When compared with ECG of 10-JUN-2024 15:30, No significant change was found *Note: Due to a large number of results and/or encounters for the requested time period, some results have not been displayed. A complete set of results can be found in Results Review. TESTING: Lab Results Component Value Date GLUCOSE 169 (H) 01/19/2025 CALCIUM 8.8 01/19/2025 NA 140 01/19/2025 K 3.9 01/19/2025 CO2 17 (L) 01/19/2025 CL 106 01/19/2025 BUN 24 01/19/2025 CREATININE 1.07 01/19/2025 ASSESSMENT/PLAN: As per AHA guidelines and previously established plan of care by Dr. Keegan Enriquez MD, we discussed the following today: Assessment & Plan HFrEF (heart failure with reduced ejection fraction) (CMS/HCC V24, CMS/HCC V28) Patient is history of HFrEF-EF 35 to 40%. He had a coronary angiogram which did not reveal any obstructive coronary artery disease. This is a nonischemic cardiomyopathy of unknown etiology. Patient does not have any contributing history that could explain his cardiomyopathy. Cardiac MRI did not show any specific etiology. LVEF did improve to 46% on recent MRI. He is tolerating Entresto, carvedilol and spironolactone. Labs are stable. I would also like the patient to start Farxiga 10 mg once a day. Patient is on insulin which is managed by his primary care provider. Daughter will reach out to the PCP again to discuss adding Farxiga. I recommend that they discuss this further with his primarycare provider as adjustments to his insulin dosing may be necessary. Patient advised to seek emergency medical attention by calling 911 if they were to develop severe dyspnea, chest pain that did not resolve with rest or nitroglycerin, or if they were to faint. I've asked the patient to call if they develop worsening symptoms of heart failure such as increased shortness of breath, new or worsening cough, increased swelling in the legs or ankles, or weight gain of more than 2 pounds in one day or 4 pounds in one week. Thank you for allowing us to participate in the care of this patient. The patient will follow up in4 months, sooner PRN. Katlin Castellanos, MSN, COMMERCIAL INSTRUCTOR SUPERVISOR-C, CCK, AACC [facility] Cosigned by Juana June MD at 02/08/2025 11:56 AM EDT documented in this encounter Plan of Treatment Upcoming Encounters Date Type Department Care Team (Late st Contact Info) Description 06/11/2025 11:30 AM EST Office Visit [facility] [address] [place] [address] [address] [place] [address] Katlin Castellanos NP [address] [place] [address] [address] [place] [address] documented as of this encounter Procedures Procedure Name Priority Date/Time Associated Diagnosis Comments ECG 12-LEAD Routine 02/08/2025 11:46 AM EDT HFrEF (heart failure with reduced ejection fraction) (CMS/HCC V24, CMS/HCC V28) documented in this encounter Results * ECG 12 lead (02/08/2025 11:46 AM EDT) Ventricular Rate ECG 86 BPM GEMUSE Atrial Rate 86 BPM GEMUSE P-R Interval 186 ms GEMUSE QRS Duration 90 ms GEMUSE Q-T Interval 334 ms GEMUSE QTc 399 ms GEMUSE P Wave [place] 50 degrees GEMUSE R [place] 13 degrees GEMUSE T [place] 53 degrees GEMUSE ECG Interpretation Normal sinus rhythm Normal ECG When compared with ECG of 10-JUN-2024 15:30, No significant change was found Confirmed by JUANA JUNE ([id number]) on 02/08/2025 1:33:58 PM GEMUSE 02/08/2025 11:2 5 AM EDT 02/08/2025 1:33 PM EDT Katlin Castellanos VICE PRESIDENT INDUSTRIAL RELATIONS ECG ORDERABLES Edited Resul t - Final ROSARIO documented in this encounter Visit Diagnoses Diagnosis HFrEF (heart failure with reduced ejection fraction) ([facility] V24, [facility] V28)- Primary documented in this encounter Discontinued Medications Medication Sig Discontinue Reason Start Date End Da te dulaglutide (Trulicity) 0.75 mg/0.5 mL pen injector injection Inject 0.5 mL (0.75 mg total) under the skin 1 (one) time per week. Discontinued by another clinician 01/29/2024 02/08/2025 gabapentin (NEURONTIN) 100 mg capsule Take 1 capsule (100 mg total) by mouth 1 (one) time each day. Discontinued by another clinician 02/08/2025 multivitamin (DAILY VITAMIN ORAL) VITAMIN D OR - Sig - Route: Take by mouth. - Oral Discontinued by another clinician 02/08/2025 metFORMIN (FORTAMET) 1,000 mg 24 hr tablet Take 1 tablet (1,000 mg total) by mouth 2 (two) times a day. Do not crush, chew, or split. Discontinued by another clinician 02/08/2025 levothyroxine (SYNTHROID, LEVOTHROID) 112 mcg tablet Take 1 tablet (112 mcg total) by mouth 1 (one) time each day. Discontinued by another clinician 02/08/2025 documented as of this encounter Historical Medications * This list may reflect changes made after this encounter. levothyroxine (SYNTHROID, LEVOTHROID) 150 mcg tablet Take 1 tablet (150 mcg total) by mouth 1 (one) time each day before breakfast. amitriptyline (ELAVIL) 25 mg tablet Take 1 tablet (25 mg total) by mouth at bedtime. cholecalciferol (VITAMIN D-3) 50 mcg (2,000 unit) tablet Take 1 tablet (2,000 Units total) by mouth 1 (one) time each day. added in this encounter Care Teams Contract Graphic Designer Relationship Specialty Start Date End Date Lesvia Driver MD [address] [facility] , [address] [facility] D/B/A: [facility] FRANCI Gorman PCP - General 01/10/24 documented as of this encounter
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
[2025-02-09 13:34] VITALS: BP 90/58; PULSE 100; O2SAT 96; BMI 34.7
--- OUTSIDE RECORDS SUMMARY | 2025-02-09 14:49 | XMS_ITS | Clinical Summary ---
Author Organization [facility] Address [address] [place] [address] Care Team Providers Care Size Roller Operator Name Role Phone Unavailable Primary Care Provider [...] 10/06/2007 Imm-Zoster, Recombinant (1 of 2) 2012 Imm-Pneumococcal 50+ (2 of 2 - PCV) 06/24/2014 06/24/2013, 02/14/2013, 08/23/2010 Imm-DTaP/Tdap/Td (3 - Td or Tdap) 07/08/2023 013, 08/23/2010 Mwh-SUBFE-10 ( season) 2024 02/13/2022, 04/19/2021, 03/29/2021 Alcohol and Drug Screen 07/29/2024 Depression Annual Screen 07/29/2024 Imm-Influenza (#1) 2025 06/24/2013, 1 , 08/23/2010, Additional history exists Insurance [employer]
== END 2025-02-09 13:44 | disposition home or self-care (01) ==
LOC: HO.HKAS 13:28
PROVIDERS: PCP Internal Medicine; Visit Provider Internal Medicine Nephrology
DX: R80.9 Proteinuria, unspecified (principal)
CPT/HCPCS: 99214

== ENCOUNTER 2025-05-25 15:05 | Outpatient (AMB) | payer OTHER, SELFPAY ==
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
[2025-05-25 15:12] VITALS: BP 114/76; PULSE 95; O2SAT 99; BMI 34.0
--- OUTSIDE RECORDS SUMMARY | 2025-05-25 19:31 | XMS_ITS | Clinical Summary ---
Author Organization [facility] Address [address] [place] [address] Care Team Providers Care Rectangular Tank Cooper Name Role Phone Unavailable Primary Care Provider [...] - Td or Tdap) 07/08/2023 013, 08/23/2010 Alcohol and Drug Screen 07/29/2024 Depression Annual Screen 07/29/2024 [id number] ( - 2024- season) 2025 02/13/2022, 04/19/2021, 03/29/2021 Imm-Influenza (#1) 2025 06/24/2013, 1 , 08/23/2010, Additional history exists Insurance [employer]
--- OUTSIDE RECORDS SUMMARY | 2025-05-25 19:31 | XMS_ITS | Clinical Summary ---
Author Organization [place] [employer] Address [address] [place], [place] [address] Phone Care Team Providers Care Raimann Machine Operator Name Role Phone Lesvia Driver MD Primary Care Provider [phone] Allergies No known active allergies Medications blood sugar diagnostic (FreeStyle Lite Strips) test strip Apply 1 Strip topically 4 times daily. 4 Active insulin glargine (Lantus Solostar U-100 Insulin) 100 unit/mL (3 mL) injection pen Inject 25 Units under the skin at bedtime. 4 Active aspirin 81 mg EC tablet Take 1 tablet (81 mg total) by mouth 1 (one) time each day. 3 Active blood-glucose meter kit 1 Each by Does not apply route as needed for Other. 3 Active FREESTYLE LANCETS MISC 1 Each by Does not apply route 4 times daily. 3 Active blood glucose control high,low (FreeStyle Control) solution 1 Each by In Vitro route Once. 3 Active spironolactone (ALDACTONE) 25 mg tablet Take 1 tablet (25 mg total) by mouth 1 (one) time each day. 90 each 1 5 Active carvediloL (COREG) 6.25 mg tablet TOME 1 TABLETA POR VIA ORAL DOS VECES AL PILAR CON LAS COMIDAS 180 tablet 1 5 Active cholecalciferol (VITAMIN D-3) 50 mcg (2,000 unit) tablet Take 1 tablet (2,000 Units total) by mouth 1 (one) time each day. Active amitriptyline (ELAVIL) 25 mg tablet Take 1 tablet (25 mg total) by mouth at bedtime. Active levothyroxine (SYNTHROID, LEVOTHROID) 150 mcg tablet Take 1 tablet (150 mcg total) by mouth 1 (one) time each day before breakfast. Active dapagliflozin propanediol (FARXIGA) 10 mg tablet Take 1 tablet (10 mg total) by mouth 1 (one) time each day. 30 tablet 5 5 Active torsemide (DEMADEX) 20 mg tabletIndicatio ns:Heart failure, unspecified (CMS/HCC V24, CMS/HCC V28) TOME 1 TABLETA POR VIA ORAL TODOS LOS BURGESS 90 tablet 3 5 Active sacubitriL-vals dunia (Entresto) 24-26 mg per tablet Take 1 tablet by mouth 2 (two) times a day. 180 tablet 1 5 Active Entresto 24-26 mg per tablet TOME 1 TABLETA POR VIA ORAL DOS VECES AL PILAR 180 tablet 1 5 05/03/20 25 Discontinu ed(Reorder ) Active Problems Problem Noted Date Diagnosed Date Asthma 04/30/2024 Hypothyroidism 04/30/2024 HFrEF (heart failure with re duced ejection fraction) (CMS/HCC V24, CMS/HCC V28) 04/30/2024 Assessment & Plan (02/08/2025 11:45 AM EDT): Patient is history of HFrEF-EF 35 to [...] that they discuss this further with his primary care provider as adjustments to his insulin dosing [...] day or 4 pounds in one week. Assessment & Plan (12/30/2024 2:46 PM EDT): Patient is history of HFrEF-EF 35 to 40%. He had a coronary angiogram which did not reveal any obstructive coronary artery disease. This is a nonischemic cardiomyopathy of unknown etiology. Patient does not have any contributing history that could explain his cardiomyopathy. Cardiac MRI did not show any specific etiology. LVEF did improve to 46% on recent MRI. He is tolerating Entresto and carvedilol. He continues on torsemide for diuretic. We discussed titrating GDMT and today I will start him on spironolactone 25 mg once a day. He will have labs done in 1 week. We also discussed the possibility of starting him on Farxiga 10 mg once a day. He is following with his primary care provider for management of his diabetes and he is on insulin. I recommend that they discuss this further with his primary care provider as adjustments to his insulin dosing [...] day or 4 pounds in one week. Assessment & Plan (10/02/2024 3:00 PM EST): Patient is on guideline directed therapy. Will not increase medications at this time. Still trying to accomplish the MRI. We given a prescription for Ativan told him he cannot drive if he takes the Ativan and will try to get the MRI scan rescheduled. Orders: MR Cardiac Morphology and Function wo and w Contrast; Future Assessment & Plan (06/10/2024 3:55 PM EST): Patient is history of HFrEF-EF 35 to 40%. He had a coronary angiogram which did not reveal any obstructive coronary artery disease. This is a nonischemic cardiomyopathy of unknown etiology. Patient does not have any contributing history that could explain his cardiomyopathy. He is due to have a cardiac MRI next month. In the meantime we have begun titrating GDMT for the appropriate treatment of heart failure. Patient was started on Entresto last office visit. He is tolerating this well. I would like to further titrate his GDMT however he will need to have his labs done today. Once I have the results of his labs and they are stable I will start him on spironolactone 25 mg once a day. I will call his daughter with those instructions once lab results are available. Patient advised to seek emergency medical attention [...] day or 4 pounds in one week. Orders: ECG 12 lead Basic metabolic panel; Future Basic metabolic panel Type 2 diabetes mellitus (CMS/[facility] V24, CMS/[facility] V 28) 07/08/2013 Overview (04/30/2024): uncontrolled Encounters Date Type Department Care Team Description 03/18/2025 Telephone [facility] [address] [facility] [address] [place] [address] Katlin Castellanos NP from Last 3 Months Immunizations Immunization Administration Dates Next Due Influenza trivalent, with pr eservative (Fluzone; Afluria) 6mo and older 06/24/2013 Pneumococcal polysaccharide 23 valent (Pneumovax 23) 2yo and older 06/24/2013 Tdap Tetanus diptheria acell ular pertussis (Boostrix; Adacel) 7yo and older 07/08/2013 Surgical History Surgery Date Site/Laterality Comments CIRCUMCISION REVISION OTHER SURGICAL HISTORY 07/29/2013 - 07/28/2014 small colonic polyp removed at colonoscopy [facility] tubular adenoma Medical History Medical History Date Comments Anemia Asthma Hypothyroidism Type 2 diabetes mellitus (CMS/[facility] V24, CMS/[facility] V 28) Family History Medical History Relation Name Comments Diabetes Father Heart attack Mother in her late 30s sudden cardiac Other uncle Cataracts Paternal Grandmother Diabetes Paternal Grandmother Glaucoma Paternal Grandmother Blindness Neg Hx Macular degeneration Neg Hx Strabismus Neg Hx Relation Name Status Comments Father Alive Mother Other uncle Paternal Grandmother Social History Tobacco Use Types Packs/Day Years Used Date Smoking Tobacco: Never Smokeless Tobacco: Never Tobacco Cessation:Counseling Given: Not Answered Alcohol Use Standard Drinks/Week Comments Never 0 (1 standard drink = 0.6 oz pur e alcohol) Sex and Gender Information Value Date Recorded Sex Assigned at Male 07/10/2024 5:37 AM EST Legal Sex Male 10:47 PM EST Gender Identity Male 07/10/2024 5:37 AM EST Sexual Orientation Straight 07/10/2024 5: 37 AM EST Obstetrics History Last Filed Vital Signs Vital Sign Reading [...] Mass Index 34.78 02/08/2025 11:21 AM EDT Plan of Treatment Upcoming Encounters Date Type Department Care Team (Late st Contact Info) Description 06/11/2025 11:30 AM EST [facility] [address] [facility] [address] [place] [address] Katlin Castellanos NP [address] [place] [address] [address] Health Maintenance Due Date Last Done Comments Colorectal Cancer Screening: Colonoscopy 1962 Diabetes: Annual Foot Exam 1972 Diabetes: Annual Retina Eye Exam 1972 RSV Immunization Adult Patients (1 - Risk 50-74 years 1-dose series) 2012 Zoster Vaccines (1 of 2) 2012 Pneumococcal Vaccine: 50+ Years (2 of 2 - PCV) 06/24/2014 06/24/2013, 02/14/2013, 08/23/2010 Cholesterol Screening (Lipid Panel) 07/01/2022 06/24/2013 HIV Screening 07/01/2022 Social Influencers of Health Screening 07/01/2022 Diabetes: Annual Urine Albumin-Creatinine Ratio (uACR) 07/14/2022 07/10/2013 Diabetes: Blood Sugar Control Test (HGBA1C) 07/14/2022 12/07/2013 DTaP,Tdap,and Td Vaccines (3 - Td or Tdap) 07/08/2023 07/08/2013, 08/23/2010 Depression Screening 07/29/2024 COVID-19 Vaccine ( - season) 2025 02/13/2022, 04/19/2021, 03/29/2021 Influenza Vaccine (#1) 2025 3, 05/18/2011, 08/23/2010, Additional history exists Diabetes: Annual GFR (Glomerular Filtration Rate) 01/19/2026 01/19/2025, 10/26/2024, 06/19/2024, Additional history exists Hepatitis C Screening Completed 07/10/2013 HIB Vaccines Aged Out No longer eligi ble based on patient's age to complete this topic HPV Vaccines Aged Out No longer eligi ble based on patient's age to complete this topic Hepatitis A Vaccines Aged Out No long er eligible based on patient's age to complete this topic Hepatitis B Vaccines Aged Out No long er eligible based on patient's age to complete this topic IPV Vaccines Aged Out No longer eligi ble based on patient's age to complete this topic MMR Vaccines Aged Out No longer eligi ble based on patient's age to complete this topic Meningococcal ACWY Vaccine Aged Out N o longer eligible based on patient's age to complete this topic Meningococcal B Vaccine Aged Out No l onger eligible based on patient's age to complete this topic RSV Immunization Patients Under 20 months Aged Out No longer eligible based on patient's age to complete this topic Varicella Vaccines Aged Out No longer eligible based on patient's age to complete this topic Procedures Procedure Name Priority Date/Time Associated Diagnosis Comments BASIC METABOLIC PANEL Routine 01/19/2025 11:30 AM EDT HFrEF (heart failure with reduced ejection fraction) ([facility] V24, [facility] V28) HEMOGLOBIN A1C Routine 12/07/2013 HM HEPATITIS C SCREENING Routine 07/10/2013 HM URINE ALBUMIN CREATININE RATIO Routine 07/10/2013 LIPID PANEL Routine 06/24/2013 from Last 3 Months or Most Recently Relevant to Health Maintenance Results * (ABNORMAL) Basic metabolic panel (01/19/2025 11:30 AM EDT) Glucose 169(H) 70 - 99 mg/dL [facility] 1 Blood Urea Nitrogen (BUN) 24 8 - 27 mg/dL [facility] 1 Creatinine 1.07 0.76 - 1.27 mg/dL [facility] 1 eGFR 78 >59 mL/min/1.7 3 [facility] 1 BUN/Creatinine Ratio 22 10 - 24 [facility] 1 Sodium 140 134 - 144 mmol/L [facility] 1 Potassium 3.9 3.5 - 5.2 mmol/L [facility] 1 Chloride 106 96 - 106 mmol/L [facility] 1 Carbon Dioxide 17(L) 20 - 29 mmol/L [facility] 1 Calcium 8.8 8.6 - 10.2 mg/dL [facility] 1 Blood Venous blood specimen / Unknown 01/19/2025 11:30 AM EDT 01/19/2025 Narrative [facility] 1 - 01/20/2025 1:06 AM EDT Performed at: 01 - [facility] [id number] [facility] [employer] Case Manager: Aurelia Baldwin MD, Phone: [phone] Result [facility] Katlin Castellanos WOMEN'S STUDIES LECTURER LAB BLOOD ORDERABLES Final R esult [facility] 1 * (ABNORMAL) Hemoglobin A1c (12/07/2013) Pathologist [facility] Hemoglobin A1C 7.9(A) 4.0 - 6.0 % Blood Venous blood specimen / Unknown Result [facility] Provider LAB BLOOD ORDERABLES Rae l Result * Urine Albumin Creatinine Ratio (07/10/2013) [facility] Urine Albumin Creatinine Ratio abstracted Result [facility] Provider HEALTH MAINTENANCE Final Result * Hepatitis C Screening (07/10/2013) Pathologist [facility] Hepatitis C Screening abstracted Result [facility] Provider HEALTH MAINTENANCE Final Result * (ABNORMAL) Lipid panel (06/24/2013) [facility] LDL/HDL Ratio 3 0 - 4 Triglycerides 181(A) 0 - 150 mg/dL Cholesterol 106 0 - 200 mg/dL HDL 35(A) >=40 mg/dL LDL Cholesterol 35 0 - 100 mg/dL Blood Venous blood specimen / Unknown Result [facility] Provider LAB BLOOD ORDERABLES Rae l Result from Last 3 Months or Most Recently Relevant to Health Maintenance Insurance [facility] Care Teams Raimann Machine Operator Relationship Specialty Start Date End Date Lesvia Driver MD [facility] [address] [facility] Physician Associ D/B/A: [facility] [place] PCP - General 01/10/24
== END 2025-05-25 15:54 | disposition home or self-care (01) ==
LOC: HO.HMCH 15:06
PROVIDERS: PCP Internal Medicine; Visit Provider Internal Medicine
DX: Z00.00 Encounter for general adult medical examination without abnormal findings (principal); E11.65 Type 2 diabetes mellitus with hyperglycemia; Z79.4 Long term (current) use of insulin; I50.22 Chronic systolic (congestive) heart failure; Z23 Encounter for immunization

== ENCOUNTER → 2025-05-25 15:05 | Outpatient (BNVA) | payer OTHER, SELFPAY | PROVIDERS: PCP Internal Medicine; Visit Provider Internal Medicine | DX: Z00.00 Encounter for general adult medical examination without abnormal findings (principal); I42.9 Cardiomyopathy, unspecified; E03.9 Hypothyroidism, unspecified; E11.65 Type 2 diabetes mellitus with hyperglycemia; I50.22 Chronic systolic (congestive) heart failure; Z23 Encounter for immunization; Z79.4 Long term (current) use of insulin; Z79.899 Other long term (current) drug therapy | CPT/HCPCS: 83036; 90471; 90715; 96127; 99212; 99396 ==

== ENCOUNTER 2025-06-19 10:13 | Outpatient (REF) | payer OTHER, SELFPAY ==
--- OUTSIDE RECORDS SUMMARY | 2025-06-19 10:16 | XMS_ITS | Clinical Summary ---
Author Organization [employer] Address [address] [place], [place] [address] Phone Care Team Providers Care Customer Sales Distributor Name Role Phone Lesvia Driver MD Primary Care Provider [phone] Allergies No known active allergies Medications blood sugar diagnostic (FreeStyle Lite Strips) test strip Apply 1 Strip topically 4 times daily. 12/19/19 14 Active insulin glargine (Lantus Solostar U-100 Insulin) 100 unit/mL (3 mL) injection pen Inject 25 Units under the skin at bedtime. 12/08/19 14 Active aspirin 81 mg EC tablet Take 1 tablet (81 mg total) by mouth 1 (one) time each day. 07/08/20 13 Active blood-glucose meter kit 1 Each by Does not apply route as needed for Other. 06/24/20 13 Active FREESTYLE LANCETS MISC 1 Each by Does not apply route 4 times daily. 06/24/20 13 Active blood glucose control high,low (FreeStyle Control) solution 1 Each by In Vitro route Once. 06/24/20 13 Active carvediloL (COREG) 6.25 mg tablet TOME 1 TABLETA POR VIA ORAL DOS VECES AL PILAR CON LAS COMIDAS 180 tablet 1 01/12/20 25 Active cholecalciferol (VITAMIN D-3) 50 mcg (2,000 [...] (one) time each day. 30 tablet 5 02/26/20 25 Active torsemide (DEMADEX) 20 mg tabletIndicatio ns:Heart failure, unspecified (CMS/HCC V24, CMS/HCC V28) TOME 1 TABLETA POR VIA ORAL TODOS LOS BURGESS 90 tablet 3 04/19/20 25 Active sacubitriL-vals dunia (Entresto) 24-26 mg per tablet Take 1 tablet by mouth 2 (two) times a day. 180 tablet 1 05/03/20 25 Active spironolactone (ALDACTONE) 25 mg tablet TAKE 1 TABLET BY MOUTH 1 TIME EACH DAY. 90 tablet 1 06/18/20 25 Active spironolactone (ALDACTONE) 25 mg tablet Take 1 tablet (25 mg total) by mouth 1 (one) time each day. 90 each 1 12/31/19 25 025 Discontinued Active Problems Problem Noted Date Diagnosed Date Asthma 04/30/2024 Hypothyroidism 04/30/2024 HFrEF (heart failure with re duced ejection fraction) (CMS/[facility] V24, CMS/[facility] V28) 04/30/2024 Assessment & Plan (02/08/2025 11:45 [...] Basic metabolic panel Type 2 diabetes mellitus (CMS/[facility] V24, CMS/[facility] V 28) 07/08/2013 Overview (04/30/2024): uncontrolled Immunizations Immunization Administration Dates Next Due Influenza [...] Anemia Asthma Hypothyroidism Type 2 diabetes mellitus (CMS/HCC V24, CMS/[facility] V 28) Family History Medical History Relation [...] Care Team (Late st Contact Info) Description 10/04/2025 8:40 AM EDT Office Visit [facility]iology Associates [facility] [address] [facility] [address] [place] [address] Katlin Castellanos NP [facility] [address] [place] [id number] Health Maintenance Due Date Last Done Comments [...] HFrEF (heart failure with reduced ejection fraction) ([facility] V24, [facility] V28) HEMOGLOBIN A1C Routine 12/07/2013 HM HEPATITIS [...] 1:06 AM EDT Performed at: 01 - [facility] [address] [id number] Repair Supervisor: Aurelia Baldwin MD, Phone: [phone] us Katlin Castellanos TUR[employer] GENERATOR OILER LAB BLOOD ORDERABLES Final R esult [facility] 1 * (ABNORMAL) Hemoglobin A1c (12/07/2013) Pathologist [facility] Hemoglobin A1C 7.9(A) 4.0 - 6.0 % Blood Venous blood specimen / Unknown [facility] Provider LAB BLOOD ORDERABLES Rae l Result * Urine Albumin Creatinine Ratio (07/10/2013) Pathologist [facility] Urine Albumin Creatinine Ratio abstracted [facility] Provider MD HEALTH MAINTENANCE Final Result * Hepatitis C Screening (07/10/2013) Pathologist [facility] Hepatitis C Screening abstracted [facility] Provider [place] HEALTH MAINTENANCE Final Result * (ABNORMAL) Lipid panel (06/24/2013) Pathologist [facility] LDL/HDL Ratio 3 0 - 4 Triglycerides 181(A) 0 - 150 mg/dL Cholesterol 106 0 - 200 mg/dL HDL 35(A) >=40 mg/dL LDL Cholesterol 35 0 - 100 mg/dL Blood Venous blood specimen / Unknown Result [facility] Provider LAB BLOOD ORDERABLES Rae l Result from Last 3 Months or Most Recently Relevant to Health Maintenance Insurance [facility] Care Teams Customer Sales Distributor Relationship Specialty Start Date End Date Lesvia Driver MD [address] [place] [address] , [address] Physician Associ D/B/A: [facility] [place] PCP - General 01/10/24
[2025-06-19 10:35] LABS: MANUAL DIFF FLAG NO
[2025-06-19 10:49] LABS: Hematocrit 27.9 % (42.0-52.0); Hemoglobin 9.6 g/dl (14.0-18.0); Imm Gran Abs Auto 0.00 X10*3/uL (0.00-0.03); Imm Gran Pct Auto 0.0 % (0.0-0.4); Lymphocytes Absolute Auto 0.8 X10*3/uL (1.2-4.9); Mean Corpuscular HGB Conc 34.4 g/dl (31.0-36.0); Mean Corpuscular Hemoglobin 30.6 pg (27.0-33.0); Mean Corpuscular Volume 88.9 fL (80.0-98.0); NRBC Abs Auto 0.000 X10*3/uL (0.0-0.012); NRBC Pct Auto 0.0 /100WBC (0.0-0.2); Platelet Count 99 X10*3/uL (160-400); Red Blood Count 3.14 X10*6/uL (4.60-5.80); White Blood Count 2.9 X10*3/uL (4.8-10.8)
[2025-06-19 11:16] LABS: NT Pro B Type Natriuretic Pept 54.5 pg/mL (<300)
[2025-06-19 11:22] LABS: Alanine Aminotransferase 16 U/L (0-40); Albumin Level 4.1 g/dL (3.5-5.0); Alkaline Phosphatase 78 U/L (39-117); Anion Gap 11 (12-20); Aspartate Amino Transferase 19 U/L (5-37); Blood Urea Nitrogen 25 mg/dL (9-16); Calcium 8.8 mg/dL (8.4-10.2); Carbon Dioxide 27 mmol/L (22-29); Chloride 105 mmol/L (96-108); Cholesterol 146 mg/dL (<200); Estimated Glomerular Filt Rate > 60; HDL Cholesterol 39 mg/dL (>40); Iron 53 mcg/dL (45-160); Percent Iron Saturation 21 % (15-50); Potassium 4.1 mmol/L (3.3-5.1); Sodium 139 mmol/L (135-145); Total Iron Binding Capacity 247 mcg/dL (228-428); Total Protein 6.6 g/dL (6.5-8.0); Triglycerides 246 mg/dL (<150); Unsaturated Iron Binding 194 ug/dL
[2025-06-19 11:38] LABS: Microalbum/Creatinine Ratio Ur 12.5 ug/mg cr (<30)
[2025-06-19 11:39] LABS: Thyroid Stimulating Hormone 0.38 uIU/mL (0.32-4.0)
[2025-06-19 11:55] LABS: Folate 7.3 ng/mL (> or = 4.0); Vitamin B12 189 pg/mL (200-900)
== END 2025-06-19 10:14 | disposition home or self-care (01) ==
LOC: HO.LAB 10:13
PROVIDERS: PCP Internal Medicine; Visit Provider Internal Medicine
DX: I50.22 Chronic systolic (congestive) heart failure (principal); E53.8 Deficiency of other specified B group vitamins; D64.9 Anemia, unspecified; E55.9 Vitamin D deficiency, unspecified; E03.9 Hypothyroidism, unspecified; E78.5 Hyperlipidemia, unspecified; R80.9 Proteinuria, unspecified
CPT/HCPCS: 36415; 80053; 80061; 82043; 82306; 82570; 82607; 82746; 83540; 83880; 84443; 85025